=== PATIENT | male | born 1965 | race Caucasian/White ===

== ENCOUNTER 2023-08-16 09:42 | Inpatient (IN) ==
--- NOTE | 2023-08-09 10:06 | PAT Medication Instructions ---
Medication Instructions Date of Service August 09, 2023 Home Medications Kidney Cane Pusher 2 tab PO BID Medical Marijuana 1 dose inhalation UD PRN Super Beets 2 tab PO QAM baclofen 10 mg tablet 10 mg PO BID PRN coenzyme Q10 100 mg capsule (CoQ-10) 100 mg PO QPM gabapentin 100 mg capsule 100 mg PO HS PRN gabapentin 300 mg capsule 300 mg PO HS PRN hydrocodone 5 mg-acetaminophen 325 mg tablet 1 tab PO Q6H PRN levothyroxine 175 mcg tablet (Synthroid) 175 mcg PO QAM loperamide 2 mg capsule 2 mg PO BID multivitamin 1 tab PO QAM omega-3 fatty acids 1,000 mg PO QAM pitavastatin calcium 2 mg tablet (Livalo) 2 mg PO PM psyllium husk 3.4 gram/5.4 gram oral powder (Metamucil) 2 tbsp PO HS STOP taking 2 weeks before surgery (or as soon as possible if surgery is within 2 weeks) Kidney Cane Pusher 2 tab PO BID Super Beets 2 tab PO QAM coenzyme Q10 100 mg capsule (CoQ-10) 100 mg PO QPM omega-3 fatty acids 1,000 mg PO QAM DO NOT take the morning of surgery Medical Marijuana 1 dose inhalation UD PRN baclofen 10 mg tablet 10 mg PO BID PRN loperamide 2 mg capsule 2 mg PO BID multivitamin 1 tab PO QAM Take morning of surgery With a small sip of water, OTHERWISE NOTHING TO EAT OR DRINK AFTER MIDNIGHT: hydrocodone 5 mg-acetaminophen 325 mg tablet 1 tab PO Q6H PRN(if needed) levothyroxine 175 mcg tablet (Synthroid) 175 mcg PO QAM Take evening before surgery baclofen 10 mg tablet 10 mg PO BID PRN(if needed) gabapentin 100 mg capsule 100 mg PO HS PRN(if needed) gabapentin 300 mg capsule 300 mg PO HS PRN(if needed) hydrocodone 5 mg-acetaminophen 325 mg tablet 1 tab PO Q6H PRN(if needed) loperamide 2 mg capsule 2 mg PO BID psyllium husk 3.4 gram/5.4 gram oral powder (Metamucil) 2 tbsp PO HS pitavastatin calcium 2 mg tablet (Livalo) 2 mg PO PM Other Notes If you have any questions please call us at [phone] or [phone] or [phone] or [phone]
--- NOTE | 2023-08-09 10:17 | Anesthesiology Consultation ---
Date of Service August 09, 2023 Assessment & Plan (1) Encounter for pre-operative examination: - Infectious disease screening: Per assessment on 08/09/23: No known infectious disease contacts or current infectious disease symptoms. Patient was Covid posit adam 06/30/2023 ([facility] [facility])- aches, congestion > symptoms resolved. Pt can proceed as scheduled without additional preop Covid testing or additional Covid contact precautions per current protocol. - Isolated PTT: Elevated, isolated PTT at 36 on preop labs. No comparison labs available. Spoke with patient- No issues with easy bruising/bleeding. Reviewed with Dr. Rendon. He feels nothing further needed from his perspective preoperatively in regards to isolated, elevated PTT on preop labs. Preop labs forwarded to PCP for continuity of care. At anesthesiologist discretion DOS if recheck level needed preop from their perspective. - Patient acceptable risk for surgery pending surgeon-ordered PCP preop evaluation (Dr. Christopher Azevedo, appt 08/10). Chart Review Chart Review: Patient seen in Pre Admission Testing Teaching & Discussion Pre-Anesthesia Teaching/Discussion Notes: Instructed NPO after midnight before surgery,except medications with 15 cc of water. Medication instructions provided according to the PAT guidelines. History Surgery Operation Date: 08/16/23 13:25 Proposed Procedures p L3-L5 Decompression and Fusion - Rogelio Jalloh DO Height/Weight Height: 5 ft 10 in Weight: 79.379 kg Allergies Allergy/AdvReac Type Severity Reaction Status Date / Time Penicillins Allergy Mild Rash Verified 08/09/23 09:54 Medications Home Medications Medication Instructions Recorded Confirmed Last Taken Kidney Bacteriologist Medical 2 tab PO BID 08/09/23 08/09/23 Unknown Medical Marijuana 1 dose inhalation UD PRN Pain 08/09/23 08/09/23 Unknown Super Beets 2 tab PO QAM 08/09/23 08/09/23 Unknown baclofen 10 mg tablet 10 mg PO BID PRN Muscle Spasm 08/09/23 08/09/23 Unknown coenzyme Q10 100 mg capsule 100 mg PO QPM 08/09/23 08/09/23 Unknown (CoQ-10) gabapentin 100 mg capsule 100 mg PO HS PRN Sleep 08/09/23 08/09/23 Unknown gabapentin 300 mg capsule 300 mg PO HS PRN Sleep 08/09/23 08/09/23 Unknown hydrocodone 5 mg-acetaminophen 325 1 tab PO Q6H PRN Pain 08/09/23 08/09/23 Unknown mg tablet levothyroxine 175 mcg tablet 175 mcg PO QAM 08/09/23 08/09/23 Unknown (Synthroid) loperamide 2 mg capsule 2 mg PO BID 08/09/23 08/09/23 Unknown multivitamin 1 tab PO QAM 08/09/23 08/09/23 Unknown omega-3 fatty acids 1,000 mg PO QAM 08/09/23 08/09/23 Unknown pitavastatin calcium 2 mg tablet 2 mg PO PM 08/09/23 08/09/23 Unknown (Livalo) psyllium husk 3.4 gram/5.4 gram 2 tbsp PO HS 08/09/23 08/09/23 Unknown oral powder (Metamucil) Past Medical History Medical History Chronic back pain Chronic low back pain with bilateral sciatica Hearing deficit History of COVID-19 06/30/2023 ([employer] [place])- aches, congestion > resolved History of kidney stones Hypothyroidism Pinched nerve L4-5 on left, L3-4 on right side Sleep apnea Subsequent weight loss, "no longer needed CPAP" > no known formal retesting Exercise / Class Metabolic Activity II 4-5 Yardwork/Stairs/Walk up hill (one FS (no CP, no SOB)) Past Family History Family History Other No family history of adverse response to anesthesia Past Surgical History Surgical History History of appendectomy History of arthroscopy of left knee History of colonoscopy History of esophagogastroduodenoscopy (EGD) History of knee surgery left History of lithotripsy History of lumbar surgery L4-L5 History of shoulder surgery Rx1, Lx1 Status post trigger finger release Past Anesthesia History No Hx of Anesthesia Complications and No Family Hx of Anesthesia Complications History of PONV No Hx of PONV and No Hx of Motion Sickness Social History Smoking Status: Never smoker Do You Dip or Chew Tobacco: No Hx Alcohol Use: Yes Alcohol type: hard liquor alcohol intake frequency: a few times a week Hx Substance Use: Yes substance use type: marijuana (Medical- couple times/week as needed for pain (inhaled)) Review of Systems Patient denies chest pain, shortness of breath, dyspnea on exertion, fever, chills, cough, wheezing, palpitations. Physical Exam Vital Signs VITALS BP 137/86 P 59 TEMP 97.5 SP02 96%RA RESP 16 PHYSICAL Full cervical extension range of motion. Full TMJ range of motion. TMD 3 finger breaths Mallampati Score 3 Dentition: intact Lungs: clear throughout to auscultation Cardiac: regular rate and rhythm, no murmurs noted Spine: normal Carotid arteries: negative bruit Extremities: no LE edema Lab Results Anesthesia Preop Results Results Anesthesia Widget: WBC 7.50 K/ul (4.8-10.8) 08/09/23 Hgb 16.3 g/dl (14.0-18.0) 08/09/23 Hct 50.8 % (42.0-52.0) 08/09/23 Plt 269 K/uL (130-400) 08/09/23 Na 139 mmol/L (136-145) 08/09/23 K 4.4 mmol/L (3.5-5.1) 08/09/23 Cl 106 mmol/L (98-107) 08/09/23 CO2 26 mmol/L (21-32) 08/09/23 BUN 21 mg/dl (6-23) 08/09/23 Creat 1.04 mg/dl (0.6-1.4) 08/09/23 Glucose Level 81 mg/dl (70-99(Fasting)) 08/09/23 PT 10.0 Seconds (9.0-12.0) 08/09/23 PTT 36 Seconds (21-31) H 08/09/23 INR 0.9 (0.9-1.1) 08/09/23 Urine Color Yellow 08/09/23 Urine Appearance Clear (Clear) 08/09/23 Urine pH 5.5 (4.5-7.5) 08/09/23 Urine Specific [place] 1.023 (1.000-1.030) 08/09/23 Urine Protein Negative (Negative) 08/09/23 Urine Glucose (UA) Negative (Negative) 08/09/23 Urine Ketones Negative (Negative) 08/09/23 Urine Blood Negative (Negative) 08/09/23 Urine Nitrite Negative (Negative) 08/09/23 Urine Bilirubin Negative (Negative) 08/09/23 Urine Urobilinogen Negative (Negative) 08/09/23 Urine Leukocyte Esterase Negative (Negative) 08/09/23 Blood Type A Positive 08/09/23 Antibody Screen NEGATIVE 08/09/23 Testing Electrocardiogram Date: 08/09/23 NSR at 65bpm. "Normal ECG" Chest X-Ray Date: 08/09/23 FINDINGS: Lung volumes are normal. There is no consolidation to suggest pneumonia. Linear bibasilar densities favor atelectasis or scarring. There is no pneumothorax or pleural effusion. Cardiac size is normal. Mediastinal contours are normal. There is no evidence for pulmonary edema. Status post distal bilateral clavicular resections. IMPRESSION: No acute cardiopulmonary findings. Stress Test Date: 08/24/19 Type: nuclear Myocardial perfusion imaging done at rest and after treadmill stress is normal. No evidence of myocardial ischemia/infarction. EF 64%.
[2023-08-16] MEDS: LR 60ML/HR IV SCH (10:30)
[2023-08-16] MEDS: ACETAMINOPHEN 500 MG TAB PO SCH (10:31)
[2023-08-16] MEDS: LR 15ML/HR IV SCH (10:31)
[2023-08-16] MEDS: VANCOMYCIN HCL 1,250 MG in SODIUM CHLORIDE 0.9% 250 ML IV SCH (10:31)
[2023-08-16] MEDS: CeleBREX 200 MG CAP PO SCH (10:32)
[2023-08-16] MEDS: GABAPENTIN 600 MG DOSE PO SCH (10:32)
[2023-08-16] MEDS ORDERED: ONDANSETRON INJ 2 MG/ML 2 ML VIAL ONE (11:07)
[2023-08-16] MEDS ORDERED: fentaNYL citrate PF 100 MCG/2 ML VIAL ONE (11:07)
[2023-08-16] MEDS ORDERED: PROPOFOL IV EMULSION 10 MG/ML 20 ML VIAL IV ONE (11:07)
[2023-08-16] MEDS ORDERED: MIDAZOLAM HCL 1 MG/ML 2ML VIAL ONE (11:07)
[2023-08-16] MEDS ORDERED: DEXAMETHASONE SOD INJ 4 MG/ML VIAL ONE (11:07)
[2023-08-16] MEDS ORDERED: LIDOCAINE 2% 2 ML VIAL/AMP(20MG/ML) INFIL ONE (11:07)
--- NOTE | 2023-08-16 11:19 | History & Physical Bridge Note ---
Date of Service August 16, 2023 History & Physical Bridge Note I have examined the patient, reviewed the History & Physical and in the interval since the performance of the History & Physical I have noted the following changes of clinical significance: no changes noted
--- NOTE | 2023-08-16 11:21 | History & Physical Report ---
Date of Service August 16, 2023 Assessment & Plan (1) Neurogenic claudication due to lumbar spinal stenosis: Plan: L3-L5 decompression and fusion History of Present Illness Chief Complaint: Back and leg pain Primary Care Provider: Christopher Azevedo This is a 50-year-old male who presents chronic persistent back and leg pain after failing since course of nonoperative care is here for surgical intervention. Allergies Allergy/AdvReac Type Severity Reaction Status Date / Time Penicillins Allergy Mild Rash Verified 08/16/23 10:16 Home Medications Medication Instructions Recorded Confirmed Type Kidney Inner Layer Scrubber Tender 2 tab PO BID 08/09/23 08/16/23 History Medical Marijuana 1 dose inhalation UD PRN Pain 08/09/23 08/16/23 History Super Beets 2 tab PO QAM 08/09/23 08/16/23 History baclofen 10 mg tablet 10 mg PO BID PRN Muscle Spasm 08/09/23 08/16/23 History coenzyme Q10 100 mg capsule 100 mg PO QPM 08/09/23 08/16/23 History (CoQ-10) gabapentin 100 mg capsule 100 mg PO DAILY PRN Pain 08/09/23 08/16/23 History gabapentin 300 mg capsule 300 mg PO HS PRN Sleep 08/09/23 08/16/23 History hydrocodone 5 mg-acetaminophen 325 1 tab PO Q6H PRN Pain 08/09/23 08/16/23 History mg tablet levothyroxine 175 mcg tablet 175 mcg PO QAM 08/09/23 08/16/23 History (Synthroid) loperamide 2 mg capsule 2 mg PO BID 08/09/23 08/16/23 History multivitamin 1 tab PO QAM 08/09/23 08/16/23 History omega-3 fatty acids 1,000 mg PO QAM 08/09/23 08/16/23 History pitavastatin calcium 2 mg tablet 2 mg PO PM 08/09/23 08/16/23 History (Livalo) psyllium husk 3.4 gram/5.4 gram 2 tbsp PO HS 08/09/23 08/16/23 History oral powder (Metamucil) Past Med/Surg History Medical History Chronic back pain Chronic low back pain with bilateral sciatica Hearing deficit History of COVID-19 06/30/2023 ([facility])- aches, congestion > resolved History of kidney stones Hypothyroidism Pinched nerve L4-5 on left, L3-4 on right side Sleep apnea Subsequent weight loss, "no longer needed CPAP" > no known formal retesting Surgical History History of appendectomy History of arthroscopy of left knee History of colonoscopy History of esophagogastroduodenoscopy (EGD) History of knee surgery left History of lithotripsy History of lumbar surgery L4-L5 History of shoulder surgery Rx1, Lx1 Status post trigger finger release Family History Other No family history of adverse response to anesthesia Social History Smoking Status: Never smoker Second Hand Exposure: No; Do You Dip or Chew Tobacco: No; Tobacco Cessation Education Requested by Patient: No Hx Alcohol Use: Yes Alcohol type: hard liquor Hx Substance Use: Yes Preferred Language: Portuguese Communication Ability: Effective Property Insurance Agent Required: No Beliefs That Will Affect Care: None Current Living Situation: Spouse Other Information That Helps Us Care for You: No Feels Safe at Home: Yes Safety Concerns: Feels Safe At This Time Assistive Devices: Glasses and Hearing Aid - Bilateral Assistive Devices Comment: reading glasses Physical Exam Physical Exam: Patient is alert and oriented Heart regular in rhythm Lungs clear Results & Data Results & Data Vital Signs (Past 12 Hours) Vital Signs Temp Pulse Resp BP Pulse Ox O2 Del Method 08/16/23 10:36 36.6 C 76 20 146/87 H 97 Room Air
[2023-08-16] MEDS ORDERED: HYDROmorphone INJ 1 MG/ML SYRINGE IV PRN ×2 (12:30→15:38)
[2023-08-16] MEDS ORDERED: ePHEDrine sulfate 50 MG/ML AMP IV PRN (12:30)
[2023-08-16] MEDS ORDERED: ATROPINE SULFATE 0.1 MG/ML 10ML SYR IV PRN (12:30)
[2023-08-16] MEDS ORDERED: ONDANSETRON INJ 2 MG/ML 2 ML VIAL IV PRN ×2 (12:30→15:38)
[2023-08-16] MEDS: BUPIVACAINE/EPINEPHRINE 0.5% MPF 1:200,000 30 ML VIAL ONE (12:43)
[2023-08-16] MEDS: ceFAZolin 330 MG/ML 1 GM VIAL ONE (12:43)
[2023-08-16] MEDS ORDERED: PHENYLEPHRINE 100MCG/ML 10ML SYR IV ONE (12:44)
[2023-08-16] MEDS ORDERED: ROCURONIUM BROMIDE 10 MG/ML 5 ML VIAL IV ONE (12:44)
[2023-08-16] MEDS ORDERED: SUGAMMADEX SODIUM 200 MG/2 ML VIAL IV ONE (12:45)
[2023-08-16] MEDS ORDERED: HYDROmorphone INJ 2 MG/ML SYR/VIAL ONE (13:35)
[2023-08-16] MEDS: FLOSEAL HEMOSTATIC MATRIX 10ML TOP ONE (13:49)
--- NOTE | 2023-08-16 13:58 | Operative Report ---
Post Operative Report Pre & Post Diagnosis Operation Date: 08/16/23 12:05 Pre-Op Diagnosis: Lumbar Disc Disease with Radiculopathy, Lumbar Lumbar spinal stenosis with radiculopathy Post-Op Diagnosis: Same I identified the patient and participated in the time-out.: Yes Procedure Operation Date: 08/16/23 12:05 Actual Procedures #1 revision decompression with bilateral medial facetectomies and foraminotomies L3-L4 L4-5. #2 posterior spinal fusion L3-L4 L4-L5. #3 placement posterior instrumentation L3-L5 #4 interbody fusion L3-L4 L4-5 per #5 placement of Spira 13 x 26 mm at L3-L4 and 11 x 26 mm at L4-5. #6 placement locally harvested morselized autograft in the posterior gutters. #7 placement infuse collagen sponge combined with Koros in the posterior lateral gutters and course in interbody space. Surgeon Rogelio Jalloh, Cripple Worker Yanelis Allen Estimated Blood Loss 150 Findings Consistent with Post-Op Diagnosis Specimens None Indications This is a 58-year-old male presents above-mentioned diagnosis after failed course of nonoperative care is here for surgical invention. Description of Procedure Patient was met with identified informed consent obtained. Patient was then taken to the operative suite underwent patient placed in a prone position on the Jasen table top Moise frame. All bony prominences well-padded eyes inspected to ensure no external pressure placed upon the. This point the lumbar spine was prepped and draped in a sterile fashion. Sharp dissection with assistance of Bovie cautery from down to and exposing the remaining lamina and transverse processes of L3 L4-5 bilaterally. From caudal cephalad fashion revision complete laminectomy of L4 and L3 was performed including bilateral medial facetectomies and foraminotomies addressing severe spinal stenosis and foraminal disease. Pedicle screws then placed in L3 L4-5 bilaterally with assistance of fluoroscopy purposes marvin placed. By way the transforaminal approach on the left complete discectomy of L4-L5 was performed endplates guided to subcortical bleeding bone 11 x 26 mm Spira cage filled with I factor tapped in position. Then proceeded to L3-L4 and again by way of transforaminal approach complete discectomy performed endplates guided to subcortically bone and a 13 x 26 mm Spira cage filled with I factor tapped into position. The rods then compressed locked in final position bilaterally. The transverse processes of L3 L4-5 burred to subcortical bleeding bone. Infuse collagen sponge, with Koros and local autograft placed in the posterior gutters. 15 round NATALYA inserted. The incision was then closed with 1 Vicryl fascia 2-0 Vicryl subcutaneously and 4 Monocryl for final skin closure. Steri-Strips sterile dressings placed. Patient waken taken to PACU in stable condition. Please note spinal cord monitoring visualized at the procedure no changes noted. Lastly Yanelis Allen was present at the entire surgeon while the patient positioning complex portions of the surgery and final skin closure. I attest to the content of the Intraoperative Record and any orders documented therein. Any exceptions are noted below.
--- NOTE | 2023-08-16 14:15 | Fluoroscopy Report ---
INTRAOPERATIVE RADIOGRAPHS CLINICAL HISTORY: L3-L5 spinal fusion. Fluoro time: 22 seconds Ka,r: 15.42 mGy FINDINGS: 2 spot fluoroscopic views of the lumbar spine are presented. There has been discectomy at L 3-L4 and L4-L5 with laminectomy and posterior fusion at L3-L5. Interpedicular screws are present at a ll levels. The orthopedic hardware appears intact. IMPRESSION: Intraoperative images from lumbar spinal fusion surgery as above. Electronically signed by: Brian Bryant M.D. 08/16/2023 2:13 PM
[2023-08-16] MEDS: fentaNYL citrate PF 100 MCG/2 ML VIAL IV PRN (14:42)
--- NOTE | 2023-08-16 15:03 | Anesthesiology Progress Note ---
Date of Service August 16, 2023 Anesthesia Post Procedure Vital Signs Vital Signs: Temp Pulse Resp BP Pulse Ox O2 Del Method O2 Flow Rate 08/16/23 14:50 77 15 136/76 97 Nasal Cannula 2 08/16/23 14:40 78 11 L 116/79 92 Room Air 08/16/23 14:30 78 15 137/78 98 Oxymask 6 08/16/23 14:20 74 15 113/63 99 Oxymask 10 08/16/23 14:10 96.6 F L 71 14 115/60 98 Oxymask 10 08/16/23 10:36 97.9 F 76 20 146/87 H 97 Room Air Pain Intensity Lower Back: Pain Intensity: 6 Transfer of Care Handoff Completed per policy Notes Mental Status: alert / awake / arousable and participated in evaluation Patient Amnestic to Procedure: Yes Nausea / Vomiting: adequately controlled Pain: adequately controlled Airway Patency, RR, SpO2: stable & adequate BP & HR: stable & adequate Hydration State: stable & adequate Anesthetic Complications: no major complications apparent and Pt Satisfied with anesthetic care
[2023-08-16] MEDS ORDERED: NALOXONE HCL 0.4 MG/1 ML VIAL/CARP IV PRN (15:38)
[2023-08-16] MEDS ORDERED: hydrOXYzine HCl 25 MG TAB PO PRN (15:38)
[2023-08-16] MEDS ORDERED: NON-FORMULARY MEDICATION (Medical Marijuana 1 EA) INH PRN (15:38)
[2023-08-16] MEDS ORDERED: ACETAMINOPHEN 500 MG TAB PO PRN (15:38)
[2023-08-16] MEDS ORDERED: LORazepam 0.5 MG TAB PO PRN (15:38)
[2023-08-16] MEDS ORDERED: HYDROmorphone INJ 0.5 MG/0.5 ML SYR IV PRN (15:38)
[2023-08-16] MEDS ORDERED: ACETAMINOPHEN 1,000 MG/100 ML VIAL IV PRN (15:38)
[2023-08-16] MEDS ORDERED: DO NOT ADMINISTER FLU VACCINE PRN (15:38)
[2023-08-16] MEDS ORDERED: FAMOTIDINE 20 MG TAB PO PRN (15:38)
[2023-08-16] MEDS ORDERED: PROMETHAZINE HCL 12.5 MG in SODIUM CHLORIDE 0.9% 50 ML IV PRN (15:38)
[2023-08-16] MEDS ORDERED: bisacodyL 10 MG SUPP PR PRN (15:38)
[2023-08-16] MEDS ORDERED: DO NOT ADMINISTER PNEUMOCOCCAL VACCINE PRN (15:38)
[2023-08-16] MEDS ORDERED: MAGNESIUM HYDROXIDE SUSP 30 ML UDC PO PRN (15:38)
[2023-08-16] MEDS ORDERED: ALUMINUM/MAGNESIUM SUSP 30 ML UDC PO PRN (15:38)
[2023-08-16] MEDS ORDERED: GABAPENTIN 300 MG CAP PO PRN (15:38)
[2023-08-16] MEDS ORDERED: LORazepam 0.5 MG in SYRINGE 0.25 ML IV PRN (15:38)
[2023-08-16] MEDS ORDERED: ONDANSETRON 4 MG OD TAB PO PRN (15:38)
[2023-08-16] MEDS ORDERED: BACLOFEN 10 MG TAB PO PRN (15:38)
[2023-08-16] MEDS ORDERED: SOD PHOSPHATE/SOD BIPHOSPHATE ENEMA 132 ML BTL PR PRN (15:38)
[2023-08-16] MEDS ORDERED: METOCLOPRAMIDE HCL INJ 5 MG/ML 2 ML VIAL IV PRN (15:38)
[2023-08-16] MEDS ORDERED: diphenhydrAMINE Capsule 25 MG CAP PO PRN (15:38)
[2023-08-16] MEDS: LACTATED RINGER'S 1,000 ML IV SCH (15:47)
--- NOTE | 2023-08-16 16:03 | Consultation ---
Date of Consultation August 16, 2023 Assessment & Plan (1) Neurogenic claudication due to lumbar spinal stenosis: (2) HLD (hyperlipidemia): (3) Hypothyroidism: (4) Sleep apnea: Plan Mr. Diaz is a 58-year-old male that presented to the [facility] for an elective L3-L5 decompression and fusion surgery under the care of Dr. Jalloh after failed outpatient conservative measures for lumbar ago with sciatica. Intraoperatively, no complications occurred. EBL 150 mL. Additional past medical history includes hypothyroidism, HLD, and ARIELLE. I visited the patient in his room with his , Ashely, at his side. He just came up to his room from the PACU; still groggy but able to answer questions appropriately. Complaints of lumbar pain, no neuropathy and he says he is able to move his legs better than he was preop. Nursing giving a dose of Oxy when I was at bedside. Will continue to support his plan of care with Ortho. All questions answered. Neurogenic claudication due to lumbar spinal stenosis: Acute POD# 0 s/p L3-L5 decompression and fusion surgery under the care of Dr. Jalloh. As outpatient was taking Baclofen, Gabapentin, and Vicodin Per ortho for pain control, wound care, anticoagulation and activities. Monitor H&H, preop hemoglobin 08/09/2019 416.3; will trend in a.m. no overt signs of bleeding. NATALYA drain x 1 Continue incentive spirometry; observed patient using correctly PT/OT when appropriate HLD: Chronic Takes pit of the statin; continue Hypothyroidism: Chronic Takes levothyroxine; continue History of kidney stones: chronic Has passed spontaneously and also had a lithotripsy in the past Takes super beets and kidney engraver copperplate for prevention ARIELLE: Chronic Per patient does not require CPAP Disposition: PCP: Dr. Azevedo CODE STATUS: Full code VTE prophylaxis: Per admitting team I spent a total of 60 minutes coordinating, documenting, and providing care for this patient excluding time spent in the performance of separately billed services. All of the aforementioned completed while collaborating with the assigned attending physician for a full treatment plan. Please see their addendum for further details. Supervising Physician Co-Signing Physician Notes Attending addendum: The patient was seen and examined in medical floor He is status post L3-L5 decompression fusion Complains back pain and some numbness and tingling in the lower extremities Denies any other significant symptom On examination Lying in bed without any acute distress Hemodynamically stable Chest-clear to auscultate bilaterally Heart-S1-S2, regular Abdomen-benign Extremities-negative for any edema His admission labs, EKG and imaging studies reviewed Status post L3-L5 decompression and fusion Remains medically stable Will check CBC and PRP tomorrow Agree with assessment plan as outlined above by Shayna Ryan History of Present Illness Requesting Physician: Dr. Jalloh Reason for Consultation: Postoperative medical management Attending Physician: Rogelio Jalloh, DO History of Present Illness Mr. Diaz is a 58-year-old male that presented to the [facility] for an elective L3-L5 decompression and fusion surgery under the care of Dr. Jalloh after failed outpatient conservative measures for lumbar ago with sciatica. Intraoperatively, no complications occurred. EBL 150 mL. Ad ditional past medical history includes hypothyroidism, HLD, history of kidney stones, and ARIELLE. Patient is a non-smoker, drinks 2-3 rum/cokes per week. No recreational drug use outside of medical marijuana. The patient just came to room 305 from PACU about an hour ago. He c/o lower back pain, no neuropathy, is able to answer questions appropriately. Has a NATALYA drain x1, indwelling scales catheter and IV fluids infusing. He was able to tolerate water when I was in the room. Nursing administered his first dose of Oxy while I was visiting. Discussed his plan of care moving forward and updated his , Ashely, at bedside. [facility]. We are available 25/01 via [place] text for any questions or concerns. Thank you kindly for this consultation. Allergies Allergy/AdvReac Type Severity Reaction Status Date / Time Penicillins Allergy Mild Rash Verified 08/16/23 10:16 Home Medications Medication Instructions Recorded Confirmed Type Kidney Vice President Digital Strategist 2 tab PO BID 08/09/23 08/16/23 History Medical Marijuana 1 dose inhalation UD PRN Pain 08/09/23 08/16/23 History Super Beets 2 tab PO QAM 08/09/23 08/16/23 History baclofen 10 mg tablet 10 mg PO BID PRN Muscle Spasm 08/09/23 08/16/23 History coenzyme Q10 100 mg capsule 100 mg PO QPM 08/09/23 08/16/23 History (CoQ-10) gabapentin 100 mg capsule 100 mg PO DAILY PRN Pain 08/09/23 08/16/23 History gabapentin 300 mg capsule 300 mg PO HS PRN Sleep 08/09/23 08/16/23 History hydrocodone 5 mg-acetaminophen 325 1 tab PO Q6H PRN Pain 08/09/23 08/16/23 History mg tablet levothyroxine 175 mcg tablet 175 mcg PO QAM 08/09/23 08/16/23 History (Synthroid) loperamide 2 mg capsule 2 mg PO BID 08/09/23 08/16/23 History multivitamin 1 tab PO QAM 08/09/23 08/16/23 History omega-3 fatty acids 1,000 mg PO QAM 08/09/23 08/16/23 History pitavastatin calcium 2 mg tablet 2 mg PO PM 08/09/23 08/16/23 History (Livalo) psyllium husk 3.4 gram/5.4 gram 2 tbsp PO HS 08/09/23 08/16/23 History oral powder (Metamucil) Patient History Medical History HLD (hyperlipidemia) Pinched nerve L4-5 on left, L3-4 on right side Chronic low back pain with bilateral sciatica Chronic back pain History of kidney stones Hypothyroidism Hearing deficit History of COVID-19 06/30/2023 ([email or web address])- aches, congestion > resolved Sleep apnea Subsequent weight loss, "no longer needed CPAP" > no known formal retesting Surgical History History of lumbar surgery L4-L5 Status post trigger finger release History of shoulder surgery Rx1, Lx1 History of knee surgery left History of arthroscopy of left knee History of lithotripsy History of esophagogastroduodenoscopy (EGD) History of colonoscopy History of appendectomy Family History Other No family history of adverse response to anesthesia Social History Smoking Status: Never smoker Second Hand Exposure: No; Do You Dip or Chew Tobacco: No; Tobacco Cessation Education Requested by Patient: No Hx Alcohol Use: Yes Alcohol type: hard liquor Hx Substance Use: Yes Preferred Language: Yoruba Communication Ability: Effective Form Grader Operator Required: No Beliefs That Will Affect Care: None Current Living Situation: Spouse Other Information That Helps Us Care for You: No Feels Safe at Home: Yes Safety Concerns: Feels Safe At This Time Assistive Devices: Glasses and Hearing Aid - Bilateral Assistive Devices Comment: reading glasses Review of Systems Review of Systems: Neuro: (-) Falls, trauma, slurred speech HEENT: (-) CORTES, dizziness, dysphagia, visual or auditory changes CV: (-) CP, palpitations, swelling Resp: (-) SOB GI: (-) appetite changes, N/V/D, bowel changes : (-) urinary changes Skin: (-) rashes Psych: (-) anxiety, depression Physical Exam Physical Exam: Neuro: AAOx4, PERRLA, no aphagia, memory changes, CNII-XII grossly intact HEENT: head normocephalic, moist mucus membranes CV: S1/S2, (-) M/G/R, (-) edema, cap refill < 3 seconds. NATALYA drain x1 bright red bloody drainage Resp: Lungs CTA in all simeon. On RA GI: Abdomen S/NT/ND, Ax4 bowel sounds, (-) CVA tenderness : indwelling scales catheter; clear yellow output Musculoskeletal: 5/5 B/L UE strength, 5/5 B/L LE strength. No gait disturbance Skin: (-) rashes , (-) erythema. Psych: euthymic mood Results & Data Vital Signs (Past 12 Hours) Vital Signs Temp Pulse Pulse Resp BP Pulse Ox O2 Del Method 08/16/23 15:30 36.5 C 77 16 126/74 95 Room Air 08/16/23 15:10 80 17 117/77 98 Nasal Cannula 08/16/23 15:00 36.5 C 85 14 119/67 93 Nasal Cannula 08/16/23 14:50 77 15 136/76 97 Nasal Cannula 08/16/23 14:40 78 11 L 116/79 92 Room Air 08/16/23 14:30 78 15 137/78 98 Oxymask 08/16/23 14:20 74 15 113/63 99 Oxymask 08/16/23 14:10 35.9 C L 71 14 115/60 98 Oxymask 08/16/23 10:36 36.6 C 76 20 146/87 H 97 Room Air O2 Flow Rate 08/16/23 15:30 08/16/23 15:10 3 08/16/23 15:00 3 08/16/23 14:50 2 08/16/23 14:40 08/16/23 14:30 6 08/16/23 14:20 10 08/16/23 14:10 10 08/16/23 10:36 Diagnostic Findings Lumbar Spine X-Ray 08/16/23 00:00 INTRAOPERATIVE RADIOGRAPHS CLINICAL HISTORY: L3-L5 spinal fusion. Fluoro time: 22 seconds Ka,r: 15.42 mGy FINDINGS: 2 spot fluoroscopic views of the lumbar spine are presented. There has been discectomy at L3-L4 and L4-L5 with laminectomy and posterior fusion at L3- L5. Interpedicular screws are present at all levels. The orthopedic hardware appears intact. IMPRESSION: Intraoperative images from lumbar spinal fusion surgery as above. Electronically signed by: Brian Bryant M.D. 08/16/2023 2:13 PM
[2023-08-16] MEDS: oxyCODONE HCL IR 5 MG TAB (IMMEDIATE RELEASE) PO PRN (16:17)
[2023-08-16] MEDS: traMADol HCL 50 MG TABLET PO PRN (18:37)
[2023-08-16] MEDS: CLINDAMYCIN/D5W 600 MG/50 ML BAG IV SCH (20:46)
[2023-08-16] MEDS: DOCUSATE SODIUM/SENNA 50/8.6MG TAB PO SCH (20:48)
[2023-08-16] MEDS ORDERED: NON-FORMULARY MEDICATION (Coenzyme Q10 [Coq-10] 100 mg Capsule) PO SCH (21:00)
[2023-08-17] MEDS: LEVOTHYROXINE SODIUM 175 MCG TABLET PO SCH (05:58)
[2023-08-17] MEDS: POLYETHYLENE (MIRALAX) 17 GM PACK PO SCH (05:58)
[2023-08-17 06:29] LABS: Basophils # (auto) 0.01 K/uL (0.00-0.20); Basophils % (auto) 0.1 %; Hemoglobin 13.5 g/dl (14.0-18.0); Immature Granulocytes # (auto) 0.06 K/uL (0.01-0.20); Immature Granulocytes % (auto) 0.5 %; Lymphocytes # (auto) 1.27 K/uL (1.20-3.40); Lymphocytes % (auto) 9.9 %; Mean Corpuscular Hemoglobin 29.1 pg (25.0-34.0); Mean Corpuscular Hgb Conc 32.9 g/dL (32.0-36.0); Mean Corpuscular Volume 88.4 fL (80.0-100.0); Mean Platelet Volume 10.2 fL (9.4-12.4); Monocytes # (auto) 1.02 K/uL (0.11-0.59); Monocytes % (auto) 7.9 %; Neutrophils # (auto) 10.48 K/uL (1.40-6.50); Neutrophils % (auto) 81.6 %; Platelet Count 271 K/uL (130-400); RDW Coefficient of Variation 12.1 % (11.5-14.5); RDW Standard Deviation 39.3 fL (36.4-46.3); Red Blood Count 4.64 M/uL (4.70-6.10); White Blood Count 12.84 K/ul (4.8-10.8)
[2023-08-17 06:55] LABS: BUN Creatinine Ratio 17.6 (10-20); Calcium 8.9 mg/dl (8.6-10.3); Creatinine Clr Calc Pharmacy 91.4 ml/min; Est GFR (African American) 107.3 ml/min; Est GFR (Non-African American) 92.6 ml/min; Potassium 4.4 mmol/L (3.5-5.1)
[2023-08-17] MEDS: dexAMETHasone 6 MG in SYRINGE 0 ML IV SCH (07:58)
[2023-08-17] MEDS: MULTIVITAMIN TAB PO SCH (07:58)
[2023-08-17] MEDS: GABAPENTIN 100 MG CAP PO PRN (07:59)
--- NOTE | 2023-08-17 11:47 | Orthopedic Progress Note ---
Date of Service August 17, 2023 Assessment & Plan (1) Neurogenic claudication due to lumbar spinal stenosis: Plan: At this time continue physical therapy monitor his NATALYA output anticipate discharge home in the next few days. Admission and Anticipated Discharge Date Admission Date: August 16, 2023 Subjective Back pain controlled leg pain markedly improved Physical Exam Physical Exam: Patient is up and ambulating. Skin strength testing. Results & Data Vital Signs (Past 12 Hours) Vital Signs Temp Pulse Resp BP Pulse Ox O2 Del Method 08/17/23 07:30 36.7 C 66 18 112/59 L 94 Room Air 08/17/23 03:41 36.5 C 74 18 119/70 95 Room Air 08/17/23 00:43 36.5 C 72 18 108/62 96 Room Air
--- NOTE | 2023-08-17 15:18 | Hospitalist Progress Note ---
Date of Service August 17, 2023 Assessment & Plan (1) Neurogenic claudication due to lumbar spinal stenosis: (2) HLD (hyperlipidemia): (3) Hypothyroidism: (4) Sleep apnea: Plan Mr. Diaz is a 58-year-old male that presented to the [facility] for an elective L3-L5 decompression and fusion surgery under the care of Dr. Jalloh after failed outpatient conservative measures for lumbar ago with sciatica. Intraoperatively, no complications occurred. EBL 150 mL. Additional past medical history includes hypothyroidism, HLD, and ARIELLE. I visited the patient in his room with his , Ashely, at his side. He just came up to his room from the PACU; still groggy but able to answer questions appropriately. Complaints of lumbar pain, no neuropathy and he says he is able to move his legs better than he was preop. Nursing giving a dose of Oxy when I was at bedside. Will continue to support his plan of care with Ortho. All questions answered. Neurogenic claudication due to lumbar spinal stenosis S/P lumbar decompression, fusion surgery by Dr. Jalloh on 08/16/2023 Postoperative acute blood loss anemia Wound care, activity, DVT prophylaxis as per primary team Continue bowel regimen to prevent constipation Continue PT OT Pain control Continue incentive spirometer Currently no indication for blood transfusion Leukocytosis likely reactive, secondary to steroids HLD: Chronic continue statin Hypothyroidism: Chronic Continue levothyroxine H/O Nephrolithiasis H/O lithotripsy in the past No acute issues ARIELLE: Chronic Patient states that he lost weight, currently not requiring CPAP DVT Px: As per Primary Team CODE STATUS: Full code Disposition Expected discharge home Admission and Anticipated Discharge Date Admission Date: August 16, 2023 Subjective Patient is seen and examined at bedside States having some back pain and stiffness + Flatus, no bowel movement today Denies any chest pain, dyspnea, dizziness, nausea, vomiting, abdominal pain Review of Systems Review of Systems: All systems reviewed & are unremarkable except as noted in Subjective Physical Exam Physical Exam: Physical Exam: Vitals signs as noted above General Appearance:Moderately built and nourished, no apparent distress Head: normocephalic, Atraumatic Eyes: normal inspection, EOMI Neck: supple, Trachea midline Respiratory/Chest: Normal breath sounds, CTA, No accessory muscle use Cardiovascular: S1, S2, No murmur Abdomen/GI:Soft, Non tender, Bowel sounds present Back: Surgical site in dressing, drain Extremities/Musculoskeletal:normal inspection, no edema Neurologic/Psych:AAOX3, grossly no focal neurological deficits Skin: normal color, warm Results & Data Results & Data Vital Signs (Past 12 Hours) Vital Signs Temp Pulse Resp BP Pulse Ox O2 Del Method 08/17/23 07:30 36.7 C 66 18 112/59 L 94 Room Air 08/17/23 03:41 36.5 C 74 18 119/70 95 Room Air Laboratory Results Short CBC 08/17/23 Range/Units 05:43 WBC 12.84 H (4.8-10.8) K/ul Hgb 13.5 L (14.0-18.0) g/dl Hct 41.0 L (42.0-52.0) % Plt Count 271 (130-400) K/uL BMP 08/17/23 05:43 Sodium 137 Potassium 4.4 Chloride 103 Carbon Dioxide 29 BUN 16 Creatinine 0.91 Glucose 104 H Calcium 8.9
[2023-08-18 06:30] LABS: Hematocrit (blood only) 39.9 % (42.0-52.0); Hemoglobin 13.3 g/dl (14.0-18.0); Mean Corpuscular Hgb Conc 33.3 g/dL (32.0-36.0); Mean Corpuscular Volume 86.9 fL (80.0-100.0); Mean Platelet Volume 10.4 fL (9.4-12.4); Platelet Count 256 K/uL (130-400); RDW Coefficient of Variation 12.4 % (11.5-14.5); RDW Standard Deviation 39.3 fL (36.4-46.3); Red Blood Count 4.59 M/uL (4.70-6.10); White Blood Count 10.82 K/ul (4.8-10.8)
[2023-08-18 07:02] LABS: BUN Creatinine Ratio 23.3 (10-20); Calcium 8.8 mg/dl (8.6-10.3); Creatinine Clr Calc Pharmacy 96.7 ml/min; Est GFR (African American) 110.8 ml/min; Est GFR (Non-African American) 95.6 ml/min; Magnesium 1.7 mg/dl (1.7-2.4)
--- NOTE | 2023-08-18 11:29 | Discharge Summary ---
Date of Service August 18, 2023 Admission HPI Per Admitting Provider This is a 50-year-old male who presents chronic persistent back and leg pain after failing since course of nonoperative care is here for surgical intervention. Principal Diagnosis Lumbar spinal stenosis with radiculopathy Discharge Data Allergies Allergy/AdvReac Type Severity Reaction Status Date / Time Penicillins Allergy Mild Rash Verified 08/16/23 10:16 Consultations 08/16/23 15:38 Consult Hospitalist Routine Procedures Performed Operation Date: 08/16/23 12:05 Actual Procedures p L3-L5 Decompression and Fusion, Spinal Cord Monitoring(Not Applicable) - Rogelio Jalloh DO Ordered Studies 08/16/23 [place] lumbar spine 2-3V Routine Hospital Course (1) Neurogenic claudication due to lumbar spinal stenosis: Patient with lumbar depression fusion tolerated well was taken to orthopedic for postop labor postop he progressed appropriate. Leg pain markedly improved. NATALYA drain decreasing appropriate. Extra strength testing. Subsidy discharged home. Discharge orders instructions from the chart for further review. Total Time Total Time Spent Total Time Spent (In Minutes): 20 minutes Discharge Plan Discharge Items Patient Disposition: Home - Self-Care Reason For Visit: POSTOP Discharge Diagnosis: Lumbar spinal stenosis with radiculopathy Activity: As commented below Non-emergency contact: Primary Care Provider Call non-emergency contact if: you have any medication questions Follow-up/Referrals: Christopher Azevedo M.D. [Primary Care Provider] - Diet: Regular Addtl Attending Provider Instructions: ACTIVITY RECOMMENDATIONS: SELF CARE INSTRUCTIONS AFTER THORACIC/LUMBAR FUSIONS 1. You may walk to your tolerance. It is good exercise for your legs and back. Expect some back and intermittent leg aches and pains. 2. You may perform "counter-top" level activities (make a sandwich, silvino with a project, etc.). 3. No bending or lifting of more than 10 pounds or back twisting of any nature (roll like a log when turning in bed). 4. You may ride in a car for 20-30 minutes at a time. No driving until after your first visit with your doctor. 5. Frequent changes of position and restricting sitting to 30 minutes at a time will help limit the amount of back spasms and stiffness you may experience. 6. You may discontinue the use of ambulatory aids (cane, crutches, etc.) once your strength and confidence allow. 7. You may director information the shower and let water strike your incision when you arrive home at least once daily. Do not take a tub bath, sit in a hot tub or go into a swimming pool until after your first recheck in the office. SPECIAL CARE INSTRUCTIONS: VERY IMPORTANT TO READ AND REVIEW A. Your surgical incision has been closed with a cosmetic suture under the skin that will dissolve in about 6 weeks. In 14 days, you can use a pair of clean scissors and cut the suture that is left outside of the skin at the ends of your incision. 1. The small skin tapes can be removed 7 days after surgery if they have not fallen off by that point. 2. You may keep the wound open to air as much as possible to promote healing after post-op day number 5 unless told otherwise by your doctor. 3. If you think the wound looks like it is becoming infected (redness or worsening drainage) and/or you are experiencing fever, chill or worsening back pain and muscle spasms, contact the office so that we may evaluate you as soon as possible. B. Complications are uncommon, but please contact us if you have any signs or symptoms of: 1. wound infection (fever higher than 102.5 degrees F, redness, separation of wound, drainage, or increasing pain from the incision) 2. blood clots in legs (pain, swelling, redness and warmth in legs) 3. urinary tract infection (fever higher than 102.5 degrees F, burning upon urination or increased frequency of urination) 4. nerve problems (inability to walk on your toes or heels, numbness, loss of bowel or bladder control) 5. any other symptoms that concern you C. Please call the office at if you have any concerns or questions about your operation or recovery. D. No smoking! Smoking drastically decreases the chance of a solid fusion. E. Do not take any anti-inflammatory medications (Indocin, Advil, Motrin, Aspirin, Naprosyn, etc.) as these may inhibit the chance of a solid fusion. Tylenol is okay to take for pain. MANAGING PAIN AFTER SPINAL SURGERY 1. Narcotic medication is intended for short-term use and will be provided for surgical pain. Surgical pain usually lasts for a period of 4-6 weeks. Narcotic medication includes Percocet, Vicodin, Darvocet, Tylenol #3 or Lortab. 2. Longer-term pain is more appropriately treated with non-narcotic medication such as Tylenol ES. 3. Muscle spasm is not appropriately treated with narcotics. Muscle relaxers such as Soma, Flexeril or Skelaxin can be used along with Tylenol ES. 4. Remember that we all live with some "aches and pains". This is not unusual or uncommon after an injury or as we get older. a. Back pain is expected and may include muscle spasms for 4 to 6 weeks after surgery. The pain should gradually improve. If the pain worsens for no apparent reason, please contact the office. b. Intermittent leg pain may also be experienced and should not be concerned about unless it worsens for no apparent reason. If so, please contact the office. 5. We will provide appropriate medication within the normal guidelines of their prescribed use. We will also be very cautious and aware of potential abuse and extended duration of patients' medication needs. a. Pain medications are for your comfort and to assist with sleep and rest so that the tissue can heal. They are not provided in order to return to normal activity and should not be used through the day. To do so or worsening pain at night can result from ongoing tissue damage and development of tolerance to the prescribed medicine. 6. Please allow 2-3 days to process refills. Prescriptions will not be mailed but must be picked up at the office. FOLLOW UP VISIT: Keep your scheduled follow-up appointment. Any questions, please call the office at . Pending Studies at Discharge: No Stand-Alone Forms: My [facility], Smoking Cessation Medications and AL Order Prescriptions: New tramadol 50 mg tablet 50 mg PO Q6H PRN (Reason: pain, moderate) Qty: 30 0RF oxycodone-acetaminophen [Percocet] 5-325 mg tablet 1 tab PO Q8H Qty: 30 0RF Continued multivitamin Tablet 1 tab PO QAM levothyroxine [Synthroid] 175 mcg Tablet 175 mcg PO QAM loperamide 2 mg Capsule 2 mg PO BID baclofen 10 mg Tablet 10 mg PO BID PRN (Reason: Muscle Spasm) gabapentin 300 mg Capsule 300 mg PO HS PRN (Reason: Sleep) gabapentin 100 mg Capsule 100 mg PO DAILY PRN (Reason: Pain) coenzyme Q10 [CoQ-10] 100 mg Capsule 100 mg PO QPM omega-3 fatty acids Capsule 1,000 mg PO QAM pitavastatin calcium [Livalo] 2 mg Tablet 2 mg PO PM Metamucil 3.4 gram/5.4 gram Powder 2 tbsp PO HS Rx Instructions: mix into at least 8 oz of water or juice before administering Kidney Gas Dispatcher 2 tab PO BID Patient Comments: takes for kidney stones Super Beets 2 tab PO QAM hydrocodone-acetaminophen 5-325 mg Tablet 1 tab PO Q6H PRN (Reason: Pain) Medical Marijuana 1 dose inhalation UD PRN (Reason: Pain) Discharge Orders: Discharge Order (Routine); Ordered 08/18/23 Ordered By: Rogelio Jalloh Admission Data Admit Date/Time: 08/16/23 14:02 Attending Provider: Rogelio Jalloh Admit Provider: Rogelio Jalloh Primary Care Provider: Christopher Azevedo Other Providers: Trinity Ren
--- NOTE | 2023-08-18 12:43 | Hospitalist Progress Note ---
Date of Service August 18, 2023 Assessment & Plan (1) Neurogenic claudication due to lumbar spinal stenosis: (2) HLD (hyperlipidemia): (3) Hypothyroidism: (4) Sleep apnea: Plan Mr. Diaz is a 58-year-old male that presented to the [facility] for an elective L3-L5 decompression and fusion surgery under the care of Dr. Jalloh after failed outpatient conservative measures for lumbar ago with sciatica. Intraoperatively, no complications occurred. EBL 150 mL. Additional past medical history includes hypothyroidism, HLD, and ARIELLE. I visited the patient in his room with his , Ashely, at his side. He just came up to his room from the PACU; still groggy but able to answer questions appropriately. Complaints of lumbar pain, no neuropathy and he says he is able to move his legs better than he was preop. Nursing giving a dose of Oxy when I was at bedside. Will continue to support his plan of care with Ortho. All questions answered. Neurogenic claudication due to lumbar spinal stenosis S/P lumbar decompression, fusion surgery by Dr. Jalloh on 08/16/2023 Postoperative acute blood loss anemia Wound care, activity, DVT prophylaxis as per primary team Continue bowel regimen to prevent constipation Continue PT OT-appreciate input and recommended home Pain control Continue incentive spirometer Currently no indication for blood transfusion CBC and PRP remain unremarkable Medically stable to be discharged HLD: Chronic continue statin Hypothyroidism: Chronic Continue levothyroxine H/O Nephrolithiasis H/O lithotripsy in the past No acute issues ARIELLE: Chronic Patient states that he lost weight, currently not requiring CPAP DVT Px: As per Primary Team CODE STATUS: Full code Disposition Expected discharge home Admission and Anticipated Discharge Date Admission Date: August 16, 2023 Subjective 08/18/2023 Patient was seen and examined in medical floor in presence of the His back pain is controlled and does not have any radiation of pain Denies any other significant symptoms and likely be discharged today or tomorrow Review of Systems Review of Systems: All systems reviewed and are unremarkable except as noted below Physical Exam Physical Exam: Sitting on a chair without any acute distress Constitutional: well developed and well nourished; not ill appearing Eyes: PERRL, conjunctivae normal, anicteric sclerae ENMT: external ear and nose normal, oropharynx normal Neck: trachea midline, no thyromegaly Respiratory: no respiratory distress Auscultation: lungs clear to auscultation bilaterally Cardiovascular: Rate/Rhythm: regular rate and regular rhythm; not tachycardic Heart Sounds: normal S1 and normal S2; no murmur Extremities: no edema Gastrointestinal (Abdomen): Inspection/Auscultation: normal bowel sounds; abdo men not distended Percussion/Palpation: abdomen soft; abdomen nontender Musculoskeletal: No acute arthritis involving any of the joint Neurologic: normal touch/pain/proprioception and moves all extremities; no focal motor deficits Psychiatric: A+Ox3, euthymic affect Lymphatic: no cervical or axillary lymphadenopathy Results & Data Results & Data Vital Signs (Past 12 Hours) Vital Signs Temp Pulse Resp BP Pulse Ox O2 Del Method 08/18/23 07:00 36.8 C 69 16 117/70 97 Room Air Laboratory Results Short CBC 08/18/23 Range/Units 05:29 WBC 10.82 H (4.8-10.8) K/ul Hgb 13.3 L (14.0-18.0) g/dl Hct 39.9 L (42.0-52.0) % Plt Count 256 (130-400) K/uL BMP 08/18/23 05:29 Sodium 139 Potassium 4.0 Chloride 104 Carbon Dioxide 28 BUN 20 Creatinine 0.86 Glucose 93 Calcium 8.8 Medications Administered Current Inpatient Medications Acetaminophen (Acetaminophen 500 Mg Tab) 1,000 mg PO Q8H PRN PRN Reason: MILD Pain Scale 1,2,3 & Pre PT Stop: 09/15/23 15:37 Al Hydrox/Mg Hydrox/Simethicone (Aluminum/Magnesium Susp 30 Ml Udc) 30 ml PO Q6H PRN PRN Reason: Dyspepsia Stop: 09/15/23 15:37 Baclofen (Baclofen 10 Mg Tab) 10 mg PO BID PRN PRN Reason: Muscle Spasm Stop: 09/15/23 15:37 Bisacodyl (Bisacodyl 10 Mg Supp) 10 mg SD DAILY PRN PRN Reason: Constipation Stop: 09/15/23 15:37 Diphenhydramine HCl (Diphenhydramine Capsule 25 Mg Cap) 25 mg PO Q6H PRN PRN Reason: Allergic Rhinitis/Insomnia Stop: 09/15/23 15:37 Famotidine (Famotidine 20 Mg Tab) 20 mg PO Q12H PRN PRN Reason: Dyspepsia Stop: 09/15/23 15:37 Gabapentin (Gabapentin 100 Mg Cap) 100 mg PO DAILY PRN; Protocol PRN Reason: Pain Stop: 09/15/23 15:37 Last Admin: 08/17/23 07:59 Dose: 100 mg Gabapentin (Gabapentin 300 Mg Cap) 300 mg PO HS PRN PRN Reason: Sleep Stop: 09/15/23 15:37 Hydromorphone HCl (Hydromorphone Inj 0.5 Mg/0.5 Ml Syr) 0.5 mg IV Q3H PRN PRN Reason: MODERATE Pain (Scale 4,5,6) & Pre PT Stop: 08/30/23 15:37 Hydromorphone HCl (Hydromorphone Inj 1 Mg/Ml Syringe) 1 mg IV Q3H PRN PRN Reason: SEVERE Pain (Scale 7,8,9,10) Stop: 08/30/23 15:37 Hydroxyzine HCl (Hydroxyzine Hcl 25 Mg Tab) 25 mg PO Q8H PRN PRN Reason: Anxiety Stop: 09/15/23 15:37 Promethazine HCl 12.5 mg/ (Sodium Chloride) 50.5 mls @ 202 mls/hr IV Q6H PRN PRN Reason: Nausea &/or Vomiting Stop: 09/15/23 15:37 Lorazepam 0.5 mg/ Syringe 0.5 mls @ 2 mls/min IV Q8H PRN; Protocol PRN Reason: Sedation/Anxiety Stop: 09/15/23 15:37 Dexamethasone 6 mg/ Syringe 1.5 mls @ 1 mls/min IV DAILY ANG Stop: 08/19/23 09:02 Last Admin: 08/18/23 07:39 Dose: 1 mls/min Influenza Virus Vaccine Quadrival (Do Not Administer Flu Vaccine) 1 each N/A PRN PRN PRN Reason: Notification Stop: 09/15/23 15:37 Levothyroxine Sodium (Levothyroxine Sodium 175 Mcg Tablet) 175 mcg PO DAILYBB ANG Stop: 09/16/23 06:29 Last Admin: 08/18/23 05:43 Dose: 175 mcg Lorazepam (Lorazepam 0.5 Mg Tab) 0.5 mg PO Q8H PRN PRN Reason: Sedation/Anxiety Stop: 09/15/23 15:37 Magnesium Hydroxide (Magnesium Hydroxide Susp 30 Ml Udc) 30 ml PO Q24H PRN PRN Reason: Constipation Stop: 09/15/23 15:37 Metoclopramide HCl (Metoclopramide Hcl Inj 5 Mg/Ml 2 Ml Vial) 10 mg IV Q6H PRN PRN Reason: Nausea &/or Vomiting Stop: 09/15/23 15:37 Multivitamins (Multivitamin Tab) 1 tab PO QAM ANG Stop: 09/16/23 08:59 Last Admin: 08/18/23 07:40 Dose: 1 tab Naloxone HCl (Naloxone Hcl 0.4 Mg/1 Ml Vial/Carp) 0.1 mg IV Q5M PRN PRN Reason: Oversedation/Resp depression Stop: 09/15/23 15:37 Ondansetron HCl (Ondansetron Inj 2 Mg/Ml 2 Ml Vial) 4 mg IV Q6H PRN PRN Reason: Nausea &/or Vomiting Stop: 09/15/23 15:37 Ondansetron HCl (Ondansetron 4 Mg Od Tab) 4 mg PO Q6H PRN PRN Reason: Nausea Stop: 09/15/23 15:37 Oxycodone HCl (Oxycodone Hcl Ir 5 Mg Tab (Immediate Release)) 5 - 10 mg PO Q4H PRN PRN Reason: Pain & Pre PT Stop: 08/30/23 15:37 Last Admin: 08/18/23 09:53 Dose: 10 mg Pneumococcal Polyvalent Vaccine (Do Not Administer Pneumococcal Vaccine) 1 each N/A PRN PRN PRN Reason: Notification Stop: 09/15/23 15:37 Polyethylene Glycol (Polyethylene (Miralax) 17 Gm Pack) 17 gm PO Q6 ANG Stop: 09/16/23 05:59 Last Admin: 08/18/23 12:15 Dose: Not Given Senna/Docusate Sodium (Docusate Sodium/Senna 50/8.6mg Tab) 2 tab PO HS ANG Stop: 09/15/23 20:59 Last Admin: 08/17/23 20:27 Dose: 2 tab Sodium Biphosphate/Sodium Phosphate (Sod Phosphate/Sod Biphosphate Enema 132 Ml Btl) 132 ml SD ONE PRN PRN Reason: Constipation Stop: 09/15/23 15:37 Tramadol HCl (Tramadol Hcl 50 Mg Tablet) 50 - 100 mg PO Q4H PRN PRN Reason: Moderate-Severe pain & Pre PT Stop: 09/15/23 15:37 Last Admin: 08/16/23 18:37 Dose: 100 mg
== END 2023-08-18 14:02 | disposition home or self-care (01) | DRG 455 ==
LOC: ASU 09:42 → 3E 14:02

== ENCOUNTER 2023-08-20 17:01 | Inpatient (IN) ==
--- NOTE | 2023-08-20 17:14 | ED Triage Note ---
Date of Service August 20, 2023 Provider in Triage Author: Alicia Hernandez History of Present Illness This patient was briefly evaluated while in triage. An abbreviated physical exam was performed. This patient is a 58-year-old Male who presents to the ED for evaluation of back pain. He had surgery four days ago and has been having severe pain at home. He is having leg numbness and difficulty urinating. He was seen at [facility] at 4 am this morning and they had contacted Dr. Jalloh to try to arrange transfer but were apparently unable to arrange Physical Exam VITALS: Vitals are noted on the nurse's note and reviewed by myself. GENERAL: [], in no acute distress, nondiaphoretic, well-developed well- nourished. SKIN: The skin was without rashes, erythema, edema, or bruising. HEAD: Normocephalic atraumatic. EARS: External auditory canals clear, tympanic membranes pearly dumont without erythema or effusion bilaterally. EYES: Pupils equal round and reactive to light and accommodation. Conjunctivae without injection, sclerae without icterus. Extraocular movements intact. NOSE: Patent, turbinates without inflammation or discharge. No sinus tenderness. MOUTH: Mucous membranes moist. Tonsils are not enlarged. Pharynx without erythema or exudate. Uvula midline. Airway patent. Tongue does not deviate. NECK: Supple without nuchal rigidity. No lymphadenopathy. No thyromegaly. Cervical spine is nontender. No JVD. HEART: Regular rate and rhythm without murmurs gallops or rubs. LUNGS: Clear to auscultation bilaterally without wheezes, rales or rhonchi. No dullness to percussion. No retractions or accessory muscle use. ABDOMEN: Positive bowel sounds x 4. Normal tympanic percussion. Soft, nontender, without masses or organomegaly. Rodriguez sign negative. No guarding or rebound tenderness. MUSCULOSKELETAL: No muscle atrophy, erythema, or edema noted. Full range of motion without joint tenderness in all extremities. No tenderness to palpation. Normal gait. Strength 5/5 throughout. NEURO: Patient was alert and oriented to person place and time. Normal sensation to light and sharp touch. Deep tendon reflexes 2+ throughout. No focal neurological deficits. Initial orders for labs and / or imaging were placed and patient was placed in the waiting area until a bed is available. Please see further documentation for the full ED course.
--- NOTE | 2023-08-20 17:18 | Emergency Department Note ---
ED Provider Note History of Present Illness Chief Complaint: Back Injury/Pain Stated Complaint: SEVERE BACK PAIN, LEG PAIN, RECENT BACK SURGERY Time Seen by Provider: 08/20/23 17:14 This patient is a 58-year-old Male who presents to the ED for evaluation of back pain. He had surgery four days ago and has been having severe pain at home. He was discharged from the hospital 2 days ago and was feeling okay at that time, however after returning home developed more severe pain. He is having bilateral leg numbness and difficulty urinating. He was seen at [facility] at 4 am this morning and they had contacted Dr. Jalloh to try to arrange transfer but were apparently unable to arrange transportation. Patient states that they were told to drive to the ER and Dr. Jalloh would meet them here. Patient had a CT scan done at [facility]. He also had a Prieto catheter placed due to urinary retention. He denies any fever/chills or difficulty moving the legs. He does report difficulty walking due to the pain. Home Medications Medication Instructions Recorded Confirmed Type Kidney Legislative Analyst 2 tab PO BID 08/09/23 08/20/23 History Medical Marijuana 1 dose inhalation UD PRN Pain 08/09/23 08/20/23 History Super Beets 2 tab PO QAM 08/09/23 08/20/23 History baclofen 10 mg tablet 10 mg PO BID PRN Muscle Spasm 08/09/23 08/20/23 History coenzyme Q10 100 mg capsule 100 mg PO QPM 08/09/23 08/20/23 History (CoQ-10) gabapentin 100 mg capsule 100 mg PO DAILY PRN Pain 08/09/23 08/20/23 History gabapentin 300 mg capsule 300 mg PO HS PRN Sleep 08/09/23 08/20/23 History hydrocodone 5 mg-acetaminophen 325 1 tab PO Q6H PRN Pain 08/09/23 08/20/23 History mg tablet levothyroxine 175 mcg tablet 175 mcg PO QAM 08/09/23 08/20/23 History (Synthroid) loperamide 2 mg capsule 2 mg PO BID 08/09/23 08/20/23 History multivitamin 1 tab PO QAM 08/09/23 08/20/23 History omega-3 fatty acids 1,000 mg PO QAM 08/09/23 08/20/23 History pitavastatin calcium 2 mg tablet 2 mg PO PM 08/09/23 08/20/23 History (Livalo) psyllium husk 3.4 gram/5.4 gram 2 tbsp PO HS 08/09/23 08/20/23 History oral powder (Metamucil) oxycodone-acetaminophen 5 mg-325 1 tab PO Q8H #30 tabs 08/17/23 08/20/23 Rx mg tablet (Percocet) tramadol 50 mg tablet 50 mg PO Q6H PRN pain, moderate 08/17/23 08/20/23 Rx #30 tabs Allergies Allergy/AdvReac Type Severity Reaction Status Date / Time Penicillins Allergy Mild Rash Verified 08/16/23 10:16 Past Med/Surg History Medical History HLD (hyperlipidemia) Pinched nerve L4-5 on left, L3-4 on right side Chronic low back pain with bilateral sciatica Chronic back pain History of kidney stones Hypothyroidism Hearing deficit History of COVID-19 06/30/2023 ([facility])- aches, congestion > resolved Sleep apnea Subsequent weight loss, "no longer needed CPAP" > no known formal retesting Surgical History History of lumbar surgery L4-L5 Status post trigger finger release History of shoulder surgery Rx1, Lx1 History of knee surgery left History of arthroscopy of left knee History of lithotripsy History of esophagogastroduodenoscopy (EGD) History of colonoscopy History of appendectomy Family History Other No family history of adverse response to anesthesia Social History Smoking Status: Never smoker Second Hand Exposure: No; Do You Dip or Chew Tobacco: No; Hx Alcohol Use: Yes Alcohol type: hard liquor Hx Substance Use: Yes Last Used Substance: Hours (ago) Preferred Language: Turkish Communication Ability: Effective Manager Purchasing Required: No Beliefs That Will Affect Care: None Current Living Situation: Spouse Feels Safe at Home: Yes Safety Concerns: Feels Safe At This Time Assistive Devices: None Physical Exam Vital Signs Vital Signs - 24 hr 08/20/23 17:09 Pulse Rate 120 H Respiratory Rate 18 Respiratory Depth Normal Blood Pressure 178/76 H Blood Pressure Mean 110 Blood Pressure Position Sitting Pulse Oximetry 99 Oxygen Delivery Method Room Air Sepsis Recent Fever Within 48 Hours No Sepsis New/Unexplained Change in Mental Status N/A Sepsis Action Taken by Nursing No Action Required VITALS: Vitals are noted on the nurse's note and reviewed by myself. GENERAL: This is a 58-year-old male, very uncomfortable appearing. SKIN: Well-healing surgical incision to the low back. No drainage or erythema. HEART: Regular rate and rhythm without murmurs gallops or rubs. LUNGS: Clear to auscultation bilaterally without wheezes, rales or rhonchi. MUSCULOSKELETAL: Generalized tenderness to palpation of the low back. Full range of motion of bilateral lower extremities. Strength 5/5 in bilateral lower extremities at the hips and knees. NEURO: Patient was alert and oriented to person place and time. Patellar reflexes 2+ bilaterally. Distal sensation intact bilaterally. Course Administered Medications Baclofen (Baclofen 10 Mg Tab) 10 mg PO TID PRN PRN Reason: Muscle Spasm Stop: 09/20/23 13:59 Last Admin: 08/21/23 20:07 Dose: 10 mg Documented By: LUCIA Diazepam (Diazepam 5 Mg Tablet) 5 mg PO Q8 PRN PRN Reason: Muscle Spasm Stop: 09/19/23 22:04 Last Admin: 08/22/23 00:00 Dose: 5 mg Documented By: Admin: 08/21/23 16:01 Dose: 5 mg Documented By: Admin: 08/20/23 22:44 Dose: 5 mg Documented By: ELKE Gabapentin (Gabapentin 300 Mg Cap) 300 mg PO BID ANG Stop: 09/19/23 22:04 Last Admin: 08/21/23 20:08 Dose: 300 mg Documented By: Admin: 08/21/23 08:26 Dose: 300 mg Documented By: Admin: 08/20/23 22:45 Dose: 300 mg Documented By: ELKE Hydromorphone HCl (Hydromorphone Inj 1 Mg/Ml Syringe) 1 mg IV Q3H PRN PRN Reason: severe pain (scale 7-10) Stop: 09/03/23 22:04 Last Admin: 08/20/23 22:43 Dose: 1 mg Documented By: ELKE Lactated Ringer's (Lr) 1,000 mls @ 75 mls/hr IV .[id number] [facility] Stop: 09/19/23 22:04 Last Admin: 08/22/23 00:01 Dose: 75 mls/hr Documented By: Infusion: 08/22/23 00:01 Dose: Infused Documented By: Admin: 08/21/23 12:27 Dose: 75 mls/hr Documented By: Infusion: 08/21/23 12:27 Dose: Infused Documented By: Admin: 08/20/23 23:43 Dose: 75 mls/hr Documented By: ELKE Levothyroxine Sodium (Levothyroxine Sodium 175 Mcg Tablet) 175 mcg PO DAILYBB [facility] Stop: 09/20/23 06:29 Last Admin: 08/21/23 05:11 Dose: 175 mcg Documented By: ELKE Loperamide HCl (Loperamide Hcl 2 Mg Cap) 2 mg PO BID [facility] Stop: 09/19/23 22:04 Last Admin: 08/21/23 20:07 Dose: 2 mg Documented By: Admin: 08/21/23 08:26 Dose: 2 mg Documented By: Admin: 08/20/23 22:44 Dose: 2 mg Documented By: ELKE Miscellaneous (Pitavastatin Calcium [Livalo]: Order Awaiting Action) 1 each N/A QS [facility] Stop: 09/20/23 07:59 Last Admin: 08/21/23 21:13 Dose: Not Given Documented By: Admin: 08/21/23 16:10 Dose: Not Given Documented By: Admin: 08/21/23 07:39 Dose: Not Given Documented By: LAKEISHA Oxycodone HCl (Oxycodone Hcl Ir 5 Mg Tab (Immediate Release)) 5 - 10 mg PO Q4H PRN PRN Reason: mod to severe pain Stop: 09/03/23 22:04 Last Admin: 08/22/23 00:00 Dose: 10 mg Documented By: Admin: 08/21/23 20:07 Dose: 10 mg Documented By: Admin: 08/21/23 16:09 Dose: 10 mg Documented By: Admin: 08/21/23 08:24 Dose: 10 mg Documented By: LAKEISHA Discontinued Medications Hydromorphone HCl (Hydromorphone Inj 1 Mg/Ml Syringe) 1 mg IV NOW STA Stop: 08/20/23 17:15 Last Admin: 08/20/23 17:25 Dose: 1 mg Documented By: TEE Dexamethasone 8 mg/ Syringe 2 mls @ 1 mls/min IV Q8H ANG Stop: 08/21/23 14:31 Last Admin: 08/21/23 15:53 Dose: 1 mls/min Documented By: Admin: 08/21/23 05:11 Dose: 1 mls/min Documented By: Admin: 08/20/23 22:44 Dose: 1 mls/min Documented By: ELKE Ketorolac Tromethamine (Ketorolac 30 Mg/Ml Vial) 30 mg IV NOW STA Stop: 08/20/23 22:06 Last Admin: 08/20/23 22:43 Dose: 30 mg Documented By: ELKE Medical Decision Making Differential Diagnosis Differential diagnosis includes postoperative pain, infection, hematoma, cauda equina syndrome, among others. Laboratory Data Attestation: I reviewed the patient's lab results. 08/20/23 17:20 08/20/23 17:20 Lab Results 08/20/23 08/20/23 Range/Units 17:20 17:43 WBC 10.53 (4.8-10.8) K/ul RBC 5.32 (4.70-6.10) M/uL Hgb 15.3 (14.0-18.0) g/dl Hct 46.2 (42.0-52.0) % MCV 86.8 (80.0-100.0) fL MCH 28.8 (25.0-34.0) pg MCHC 33.1 (32.0-36.0) g/dL RDW Std Deviation 38.5 (36.4-46.3) fL RDW Coeff of Jocelyne 12.1 (11.5-14.5) % Plt Count 392 (130-400) K/uL MPV 10.1 (9.4-12.4) fL Immature Gran % (Auto) 0.8 % Neut % (Auto) 90.1 % Lymph % (Auto) 6.3 % Nye % (Auto) 2.6 % Eos % (Auto) 0.0 % Baso % (Auto) 0.2 % Neut # (Auto) 9.50 H (1.40-6.50) K/uL Lymph # (Auto) 0.66 L (1.20-3.40) K/uL Nye # (Auto) 0.27 (0.11-0.59) K/uL Eos # (Auto) 0.00 (0.00-0.50) K/uL Baso # (Auto) 0.02 (0.00-0.20) K/uL Immature Gran # (Auto) 0.08 (0.01-0.20) K/uL Sodium 135 L (136-145) mmol/L Potassium 4.0 (3.5-5.1) mmol/L Chloride 98 (98-107) mmol/L Carbon Dioxide 21 (21-32) mmol/L Anion Gap 16 H (3-11) BUN 16 (6-23) mg/dl Creatinine 1.02 (0.6-1.4) mg/dl Est Cr Clr Drug Dosing 78.9 ml/min Est GFR ( Amer) 93.5 ml/min Est GFR (Non-Af Amer) 80.6 ml/min BUN/Creatinine Ratio 15.7 (10-20) Glucose 158 H (70-99(Fasting)) mg/dl Calcium 10.2 (8.6-10.3) mg/dl Total Bilirubin 1.0 (0.2-1.0) mg/dl AST 23 (13-39) U/L ALT 20 (7-52) U/L Alkaline Phosphatase 76 (34-104) U/L Total Protein 7.6 (6.0-8.3) gm/dl Albumin 4.1 (3.4-5.0) gm/dl Globulin 3.5 (2.5-4.0) gm/dl Albumin/Globulin Ratio 1.2 (0.9-2) Urine Color Yellow Urine Appearance Clear (Clear) Urine pH >= 9.0 H (4.5-7.5) Ur Specific [place] 1.012 (1.000-1.030) Urine Protein Negative (Negative) Urine Glucose (UA) Negative (Negative) Urine Ketones 1+ H (Negative) Urine Blood Negative (Negative) Urine Nitrite Negative (Negative) Urine Bilirubin Negative (Negative) Urine Urobilinogen Negative (Negative) Ur Leukocyte Esterase Negative (Negative) MDM Narrative This patient is a 58-year-old male who presents to the emergency department, apparently as a transfer from [facility] for evaluation of severe postoperative back pain. Patient had surgery performed by Dr. Jalloh 4 days ago and was discharged 2 days ago. He is having severe, uncontrolled back pain at home. He was treated here with IV Dilaudid. He does have a Prieto catheter in place on arrival due to urinary retention. His sensation is intact distally, with normal patellar reflexes and normal strength of the lower extremities. I did speak with Dr. Jalloh regarding the patient and he will place orders for admission. Patient was agreeable with the plan of care. Impression Postoperative back pain Discharge Plan Visit Data Chief Complaint: Back Injury/Pain Stated Complaint: SEVERE BACK PAIN, LEG PAIN, RECENT BACK SURGERY ED Provider: Wilberto Wu ED Midlevel Provider: Alicia Hernandez Discharge Problem: Postoperative back pain Patient Disposition: Admitted As Inpatient Discharge Instructions Interventions: ED Discharge Assessment Last Done: 08/20/23 21:18
[2023-08-20] MEDS: HYDROmorphone INJ 1 MG/ML SYRINGE IV STA (17:25)
[2023-08-20 18:13] LABS: Appearance Urine Clear (Clear); Bilirubin Urine Negative (Negative); Blood Urine Negative (Negative); Color Urine Yellow; Glucose Urine UA Negative (Negative); Ketones Urine 1+ (Negative); Leukocyte Esterase Urine Negative (Negative); Nitrite Urine Negative (Negative); Protein Urine Negative (Negative); Specific Gravity Urine 1.012 (1.000-1.030); Urobilinogen Urine Negative (Negative); pH Urine >= 9.0 (4.5-7.5)
[2023-08-20 18:17] LABS: Hematocrit (blood only) 46.2 % (42.0-52.0); Hemoglobin 15.3 g/dl (14.0-18.0); Mean Corpuscular Hemoglobin 28.8 pg (25.0-34.0); Mean Corpuscular Hgb Conc 33.1 g/dL (32.0-36.0); Mean Corpuscular Volume 86.8 fL (80.0-100.0); Mean Platelet Volume 10.1 fL (9.4-12.4); Platelet Count 392 K/uL (130-400); RDW Coefficient of Variation 12.1 % (11.5-14.5); RDW Standard Deviation 38.5 fL (36.4-46.3); Red Blood Count 5.32 M/uL (4.70-6.10); White Blood Count 10.53 K/ul (4.8-10.8)
[2023-08-20 18:39] LABS: Basophils # (auto) 0.02 K/uL (0.00-0.20); Basophils % (auto) 0.2 %; Immature Granulocytes # (auto) 0.08 K/uL (0.01-0.20); Immature Granulocytes % (auto) 0.8 %; Lymphocytes # (auto) 0.66 K/uL (1.20-3.40); Lymphocytes % (auto) 6.3 %; Monocytes # (auto) 0.27 K/uL (0.11-0.59); Monocytes % (auto) 2.6 %; Neutrophils % (auto) 90.1 %
[2023-08-20 19:04] LABS: Albumin Level 4.1 gm/dl (3.4-5.0); Calcium 10.2 mg/dl (8.6-10.3)
[2023-08-20 19:10] LABS: Albumin Globulin Ratio 1.2 (0.9-2); BUN Creatinine Ratio 15.7 (10-20); Creatinine Clr Calc Pharmacy 78.9 ml/min; Est GFR (African American) 93.5 ml/min; Est GFR (Non-African American) 80.6 ml/min; Globulin 3.5 gm/dl (2.5-4.0); Total Protein 7.6 gm/dl (6.0-8.3)
[2023-08-20] MEDS ORDERED: NON-FORMULARY MEDICATION (Medical Marijuana 1 EA) INH PRN (22:05)
[2023-08-20] MEDS ORDERED: ONDANSETRON INJ 2 MG/ML 2 ML VIAL IV PRN (22:05)
[2023-08-20] MEDS ORDERED: NON-FORMULARY MEDICATION (Coenzyme Q10 [Coq-10] 100 mg Capsule) PO SCH (22:05)
[2023-08-20] MEDS ORDERED: ACETAMINOPHEN 1,000 MG/100 ML VIAL IV PRN (22:05)
[2023-08-20] MEDS ORDERED: MAGNESIUM HYDROXIDE SUSP 30 ML UDC PO PRN (22:05)
[2023-08-20] MEDS ORDERED: traMADol HCL 50 MG TABLET PO PRN (22:05)
[2023-08-20] MEDS ORDERED: PROMETHAZINE HCL 12.5 MG in SODIUM CHLORIDE 0.9% 50 ML IV PRN (22:05)
[2023-08-20] MEDS ORDERED: [UNRECOGNIZED DRUG - OTHER] PO SCH (22:05)
[2023-08-20] MEDS ORDERED: NALOXONE HCL 0.4 MG/1 ML VIAL/CARP IV PRN (22:05)
[2023-08-20] MEDS ORDERED: ALUMINUM/MAGNESIUM SUSP 30 ML UDC PO PRN (22:05)
[2023-08-20] MEDS ORDERED: HYDROmorphone INJ 0.5 MG/0.5 ML SYR IV PRN (22:05)
[2023-08-20] MEDS ORDERED: METOCLOPRAMIDE HCL INJ 5 MG/ML 2 ML VIAL IV PRN (22:05)
[2023-08-20] MEDS ORDERED: ONDANSETRON 4 MG OD TAB PO PRN (22:05)
[2023-08-20] MEDS ORDERED: ACETAMINOPHEN 500 MG TAB PO PRN (22:05)
[2023-08-20] MEDS: HYDROmorphone INJ 1 MG/ML SYRINGE IV PRN (22:43)
[2023-08-20] MEDS: KETOROLAC 30 MG/ML VIAL IV STA (22:43)
[2023-08-20] MEDS: LOPERAMIDE HCL 2 MG CAP PO SCH (22:44)
[2023-08-20] MEDS: dexAMETHasone 8 MG in SYRINGE 0 ML IV SCH (22:44)
[2023-08-20] MEDS: diazePAM 5 MG TABLET PO PRN (22:44)
[2023-08-20] MEDS: GABAPENTIN 300 MG CAP PO SCH (22:45)
[2023-08-20] MEDS: LACTATED RINGER'S 1,000 ML IV SCH (23:43)
[2023-08-21] MEDS: LEVOTHYROXINE SODIUM 175 MCG TABLET PO SCH (05:11)
[2023-08-21] MEDS: oxyCODONE HCL IR 5 MG TAB (IMMEDIATE RELEASE) PO PRN (08:24)
--- NOTE | 2023-08-21 11:04 | History & Physical Report ---
Date of Service August 21, 2023 Assessment & Plan (1) Neurogenic claudication due to lumbar spinal stenosis: Plan: CAT scan from [facility] available for review demonstrates instrumentation to be in place in appropriate alignment. I do not appreciate any significant mass effect. At this morning he is beginning to respond to anti-inflammatory medications. Will initiate a course of physical therapy for ambulation. Will continue to treat his pain throughout the week and hopefully discharge home in the next few days. Admission and Anticipated Discharge Date Admission Date: August 20, 2023 History of Present Illness Chief Complaint: Postoperative back pain Primary Care Provider: Christopher Azevedo This is a 50-year-old male status post revision decompression and fusion at presented to his local emergency room with severe postoperative back pain. He was later brought to our institution. He was pain began postop day 3 and that evening progressed he was unable to control with his home medications. Describe d across the lumbar spine particular in the left paravertebral musculature. This morning he denies any numbness or tingling lower extremities. He is able to sit in a chair with reasonable comfort. Allergies Allergy/AdvReac Type Severity Reaction Status Date / Time Penicillins Allergy Mild Rash Verified 08/16/23 10:16 Home Medications Medication Instructions Recorded Confirmed Type [facility] Manager 2 tab PO BID 08/09/23 08/20/23 History Medical Marijuana 1 dose inhalation UD PRN Pain 08/09/23 08/20/23 History Super Beets 2 tab PO QAM 08/09/23 08/20/23 History baclofen 10 mg tablet 10 mg PO BID PRN Muscle Spasm 08/09/23 08/20/23 History coenzyme Q10 100 mg capsule 100 mg PO QPM 08/09/23 08/20/23 History (CoQ-10) gabapentin 100 mg capsule 100 mg PO DAILY PRN Pain 08/09/23 08/20/23 History gabapentin 300 mg capsule 300 mg PO HS PRN Sleep 08/09/23 08/20/23 History hydrocodone 5 mg-acetaminophen 325 1 tab PO Q6H PRN Pain 08/09/23 08/20/23 History mg tablet levothyroxine 175 mcg tablet 175 mcg PO QAM 08/09/23 08/20/23 History (Synthroid) loperamide 2 mg capsule 2 mg PO BID 08/09/23 08/20/23 History multivitamin 1 tab PO QAM 08/09/23 08/20/23 History omega-3 fatty acids 1,000 mg PO QAM 08/09/23 08/20/23 History pitavastatin calcium 2 mg tablet 2 mg PO PM 08/09/23 08/20/23 History (Livalo) psyllium husk 3.4 gram/5.4 gram 2 tbsp PO HS 08/09/23 08/20/23 History oral powder (Metamucil) oxycodone-acetaminophen 5 mg-325 1 tab PO Q8H #30 tabs 08/17/23 08/20/23 Rx mg tablet (Percocet) tramadol 50 mg tablet 50 mg PO Q6H PRN pain, moderate 08/17/23 08/20/23 Rx #30 tabs Past Med/Surg History Medical History HLD (hyperlipidemia) Pinched nerve L4-5 on left, L3-4 on right side Chronic low back pain with bilateral sciatica Chronic back pain History of kidney stones Hypothyroidism Hearing deficit History of COVID-19 06/30/2023 ([facility])- aches, congestion > resolved Sleep apnea Subsequent weight loss, "no longer needed CPAP" > no known formal retesting Surgical History History of lumbar surgery L4-L5 Status post trigger finger release History of shoulder surgery Rx1, Lx1 History of knee surgery left History of arthroscopy of left knee History of lithotripsy History of esophagogastroduodenoscopy (EGD) History of colonoscopy History of appendectomy Family History Other No family history of adverse response to anesthesia Social History Smoking Status: Never smoker Second Hand Exposure: No; Do You Dip or Chew Tobacco: No; Hx Alcohol Use: Yes Alcohol type: hard liquor Hx Substance Use: Yes Last Used Substance: Hours (ago) Preferred Language: Lebanese Communication Ability: Effective Programming Manager Required: No Beliefs That Will Affect Care: None Current Living Situation: Spouse Feels Safe at Home: Yes Safety Concerns: Feels Safe At This Time Assistive Devices: None Physical Exam Physical Exam: On exam he is in the chair at the bedside. Is good strength testing of the lower extremities. Sensory symmetric and intact. He does have some tenderness palpation lumbar musculature. Results & Data Results & Data Vital Signs (Past 12 Hours) Vital Signs Temp Pulse Resp BP Pulse Ox O2 Del Method O2 Flow Rate 08/21/23 08:49 36.6 C 104 H 16 135/79 96 Room Air 08/21/23 00:09 36.8 C 77 18 127/66 99 Nasal Cannula 3 Code Status & VTE Plan VTE Prophylaxis Plan VTE Prophylaxis will be ordered: Yes
[2023-08-21] MEDS: BACLOFEN 10 MG TAB PO PRN (20:07)
--- NOTE | 2023-08-22 11:42 | Orthopedic Progress Note ---
Date of Service August 22, 2023 Assessment & Plan (1) Postoperative back pain: Plan: The patient is responding to the anti-inflammatory medications. This includes muscle relaxers. Will see how he progresses throughout the day and possible discharge home Wednesday. Admission and Anticipated Discharge Date Admission Date: August 20, 2023 Subjective Back pain is markedly improved. He denies any leg pain numbness or tingling. He states has been up and ambulating without difficulty. He has noted bowel movements but still has a Prieto catheter in place. Physical Exam Physical Exam: Patient is in the chair at the bedside. Is good strength testing. Results & Data Vital Signs (Past 12 Hours) Vital Signs Temp Pulse Resp BP Pulse Ox O2 Del Method 08/22/23 07:44 36.4 C L 65 16 122/83 96 Room Air
[2023-08-22] MEDS ORDERED: bisacodyL 10 MG SUPP PR PRN (18:32)
[2023-08-22] MEDS: PSYLLIUM or GUAR GUM FIBER POWDER PACKET PO SCH (20:04)
[2023-08-23] MEDS: dexAMETHasone 8 MG in SYRINGE 0 ML IV SCH (08:49)
--- NOTE | 2023-08-23 09:49 | Discharge Summary ---
Date of Service August 23, 2023 Admission HPI Per Admitting Provider This is a 50-year-old male status post revision decompression and fusion at presented to his local emergency room with severe postoperative back pain. He was later brought to our institution. He was pain began postop day 3 and that evening progressed he was unable to control with his home medications. Described across the lumbar spine particular in the left paravertebral musculature. This morning he denies any numbness or tingling lower extremities. He is able to sit in a chair with reasonable comfort. Principal Diagnosis Postoperative lumbar back pain Discharge Data Allergies Allergy/AdvReac Type Severity Reaction Status Date / Time Penicillins Allergy Mild Rash Verified 08/16/23 10:16 Consultations 08/20/23 18:23 ED Decision to Admit Stat Hospital Course (1) Postoperative back pain: Patient met with his severe postoperative back pain. He did well over the course of his hospital stay pain improved. Tolerating therapy ambulating without difficulty urinating well. Excellent strength testing. Subsequent discharge home. Discharge orders instructions on the chart for further review. Total Time Total Time Spent Total Time Spent (In Minutes): 20 minutes Discharge Plan Discharge Items Patient Disposition: Home - Self-Care Reason For Visit: BACK PAIN Discharge Diagnosis: Status post lumbar fusion Activity: As commented below Non-emergency contact: Primary Care Provider Call non-emergency contact if: you have any medication questions Follow-up/Referrals: Christopher Azevedo M.D. [Primary Care Provider] - Diet: Regular Addtl Attending Provider Instructions: ACTIVITY RECOMMENDATIONS: SELF CARE INSTRUCTIONS AFTER THORACIC/LUMBAR FUSIONS 1. You may walk to your tolerance. It is good exercise for your legs and back. Expect some back and intermittent leg aches and pains. 2. You may perform "counter-top" level activities (make a sandwich, silvino with a project, etc.). 3. No bending or lifting of more than 10 pounds or back twisting of any nature (roll like a log when turning in bed). 4. You may ride in a car for 20-30 minutes at a time. No driving until after your first visit with your doctor. 5. Frequent changes of position and restricting sitting to 30 minutes at a time will help limit the amount of back spasms and stiffness you may experience. 6. You may discontinue the use of ambulatory aids (cane, crutches, etc.) once your strength and confidence allow. 7. You may automotive parts interpreter the shower and let water strike your incision when you arrive home at least once daily. Do not take a tub bath, sit in a hot tub or go into a swimming pool until after your first recheck in the office. SPECIAL CARE INSTRUCTIONS: VERY IMPORTANT TO READ AND REVIEW A. Your surgical incision has been closed with a cosmetic suture under the skin that will dissolve in about 6 weeks. In 14 days, you can use a pair of clean scissors and cut the suture that is left outside of the skin at the ends of your incision. 1. The small skin tapes can be removed 7 days after surgery if they have not fallen off by that point. 2. You may keep the wound open to air as much as possible to promote healing after post-op day number 5 unless told otherwise by your doctor. 3. If you think the wound looks like it is becoming infected (redness or worsening drainage) and/or you are experiencing fever, chill or worsening back pain and muscle spasms, contact the office so that we may evaluate you as soon as possible. B. Complications are uncommon, but please contact us if you have any signs or symptoms of: 1. wound infection (fever higher than 102.5 degrees F, redness, separation of wound, drainage, or increasing pain from the incision) 2. blood clots in legs (pain, swelling, redness and warmth in legs) 3. urinary tract infection (fever higher than 102.5 degrees F, burning upon urination or increased frequency of urination) 4. nerve problems (inability to walk on your toes or heels, numbness, loss of bowel or bladder control) 5. any other symptoms that concern you C. Please call the office at if you have any concerns or questions about your operation or recovery. D. No smoking! Smoking drastically decreases the chance of a solid fusion. E. Do not take any anti-inflammatory medications (Indocin, Advil, Motrin, Aspirin, Naprosyn, etc.) as these may inhibit the chance of a solid fusion. Tylenol is okay to take for pain. MANAGING PAIN AFTER SPINAL SURGERY 1. Narcotic medication is intended for short-term use and will be provided for surgical pain. Surgical pain usually lasts for a period of 4-6 weeks. Narcotic medication includes Percocet, Vicodin, Darvocet, Tylenol #3 or Lortab. 2. Longer-term pain is more appropriately treated with non-narcotic medication such as Tylenol ES. 3. Muscle spasm is not appropriately treated with narcotics. Muscle relaxers such as Soma, Flexeril or Skelaxin can be used along with Tylenol ES. 4. Remember that we all live with some "aches and pains". This is not unusual or uncommon after an injury or as we get older. a. Back pain is expected and may include muscle spasms for 4 to 6 weeks after surgery. The pain should gradually improve. If the pain worsens for no apparent reason, please contact the office. b. Intermittent leg pain may also be experienced and should not be concerned about unless it worsens for no apparent reason. If so, please contact the office. 5. We will provide appropriate medication within the normal guidelines of their prescribed use. We will also be very cautious and aware of potential abuse and extended duration of patients' medication needs. a. Pain medications are for your comfort and to assist with sleep and rest so that the tissue can heal. They are not provided in order to return to normal activity and should not be used through the day. To do so or worsening pain at night can result from ongoing tissue damage and development of tolerance to the prescribed medicine. 6. Please allow 2-3 days to process refills. Prescriptions will not be mailed but must be picked up at the office. FOLLOW UP VISIT: Keep your scheduled follow-up appointment. Any questions, please call the office at . Pending Studies at Discharge: No Stand-Alone Forms: [facility], Smoking Cessation Medications and SD Order Prescriptions: New diazepam 5 mg Tablet 5 mg PO Q8 PRN (Reason: muscle spasm) Qty: 14 0RF oxycodone 5 mg tablet 5 mg PO Q6H PRN (Reason: pain) Qty: 30 0RF Continued multivitamin Tablet 1 tab PO QAM levothyroxine [Synthroid] 175 mcg Tablet 175 mcg PO QAM loperamide 2 mg Capsule 2 mg PO BID baclofen 10 mg Tablet 10 mg PO BID PRN (Reason: Muscle Spasm) gabapentin 300 mg Capsule 300 mg PO HS PRN (Reason: Sleep) gabapentin 100 mg Capsule 100 mg PO DAILY PRN (Reason: Pain) coenzyme Q10 [CoQ-10] 100 mg Capsule 100 mg PO QPM omega-3 fatty acids Capsule 1,000 mg PO QAM pitavastatin calcium [Livalo] 2 mg Tablet 2 mg PO PM Metamucil 3.4 gram/5.4 gram Powder 2 tbsp PO HS Rx Instructions: mix into at least 8 oz of water or juice before administering Kidney [facility]erg[facility] Container Winding Operator 2 tab PO BID Patient Comments: takes for kidney stones Super Beets 2 tab PO QAM hydrocodone-acetaminophen 5-325 mg Tablet 1 tab PO Q6H PRN (Reason: Pain) Medical Marijuana 1 dose inhalation UD PRN (Reason: Pain) tramadol 50 mg tablet 50 mg PO Q6H PRN (Reason: pain, moderate) Qty: 30 0RF oxycodone-acetaminophen [Percocet] 5-325 mg tablet 1 tab PO Q8H Qty: 30 0RF Discharge Orders: Discharge Order (Routine); Ordered 08/23/23 Ordered By: Rogelio Jalloh Admission Data Admit Date/Time: 08/20/23 18:36 Attending Provider: Rogelio Jalloh Admit Provider: Rogelio Jalloh Primary Care Provider: Christopher Azevedo. Other Providers: Rogelio Jalloh
== END 2023-08-23 13:28 | disposition home or self-care (01) | DRG 948 ==
LOC: ED 17:01 → 3N 18:36